=== PATIENT | male | born 1990 | race Hispanic/Latino ===

== ENCOUNTER 2020-03-08 04:07 | Emergency (ER) ==
[2020-03-08] MEDS ORDERED: Boostrix 0.5 ML VIAL ONE (04:27)
[2020-03-08] MEDS ORDERED: Lidocaine 4% Cream 5 GM TUBE w/ Tegaderm ONE (04:27)
[2020-03-08] MEDS ORDERED: Bacitracin 1 PK ONE (05:21)
== END 2020-03-08 05:21 ==
LOC: ERS 04:07
DX: S01.112A Laceration without foreign body of left eyelid and periocular area, initial encounter (principal); W22.8XXA Striking against or struck by other objects, initial encounter
CPT/HCPCS: 12011; 90471; 90715